=== PATIENT | female | born 1980 | race Caucasian/White ===

== ENCOUNTER 2016-09-15 19:35 | Emergency (ER) | payer MEDICAID ==
[2016-09-15 20:03] VITALS: BP 135/73
[2016-09-15] MEDS ORDERED: Ketorolac 60 MG/2 ML SDV IM ONE (20:19)
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
== END 2016-09-15 20:33 | disposition home or self-care (01) ==
LOC: LL.ED 19:35
DX: S30.0XXA Contusion of lower back and pelvis, initial encounter (principal); E03.9 Hypothyroidism, unspecified; Z88.5 Allergy status to narcotic agent; Z79.899 Other long term (current) drug therapy; W22.8XXA Striking against or struck by other objects, initial encounter
CPT/HCPCS: 72070; 72100; 96372; 99283; J1885